=== PATIENT | female | born 1970 | race Caucasian/White ===

== ENCOUNTER 2017-03-19 18:45 | Inpatient (IN) ==
[2017-03-19] MEDS ORDERED: *HR* LORazepam 2 MG/ML VIAL IM PRN (19:53)
[2017-03-19] MEDS ORDERED: *HR* LORazepam 1 MG TABLET PO PRN (19:53)
[2017-03-19] MEDS ORDERED: Haloperidol Lactate 5 MG/ML VIAL IM PRN (19:53)
[2017-03-19] MEDS ORDERED: Mag Hydrox/Al Hydrox/Simeth 30 ML UDC PO PRN (19:53)
[2017-03-19] MEDS ORDERED: Gabapentin 400 MG CAPSULE PO SCH (21:00)
[2017-03-19] MEDS: traZODone 50 MG TABLET PO PRN (21:31)
[2017-03-19] MEDS: Divalproex (12 HR) 500 MG TABLET PO SCH (21:33)
[2017-03-20] MEDS: traZODone 50 MG TABLET PO PRN ×2 (00:39→20:19)
[2017-03-20] MEDS: Divalproex (12 HR) 500 MG TABLET PO SCH ×2 (08:17→20:19)
[2017-03-20] MEDS: Multivit/Ca/Min/Fe/FA 1 TAB TABLET PO SCH (08:17)
[2017-03-20] MEDS: Loratadine 10 MG TABLET PO SCH (08:17)
[2017-03-20] MEDS: Furosemide 20 MG TABLET PO SCH (08:18)
[2017-03-20] MEDS: *HR* Metformin 500 MG TABLET PO SCH ×2 (08:18→17:04)
[2017-03-20] MEDS: (Omega-3/Dha/Epa/Fish Oil [Fish Oil 1,000 Mg Softgel]) PO SCH (08:20)
--- NOTE | 2017-03-20 10:04 | Psychiatry History & Physical ---
Date of Encounter: 03/20/17 Time of Encounter: 09:30 History of Present Illness Patient Stated Chief Complaint: Suicidal Medicare Admission Attestation: For traditional Medicare patients the provided hospital inpatient services are reasonable and necessary and in the case of services not specified as inpatient -only under 42 CFR 419.22 (n), that they are appropriately provided as inpatient services in accordance 42 CFR 412.3. For Critical Access Hospital the patient may reasonably be expected to be discharged or transferred to a hospital within 96 hours after admission to the Critical Access Hospital. Admitted From: Hospital to Hospital Transfer ([facility]) History of Present Illness: Ms. Steel is a 46 year old female transferred from [facility] for evaluation and treatment of schizoaffective disorder bipolar type and suicidal ideation. Per records patient had an argument with her father and felt suicidal and depressed and was taken to [facility] ER for evaluation and transferred to [place]. Patient is well known to this unit and had multiple admissions in the past most recent was in 2008 and also had multiple suicide attempts. Patient stated that her family is quite controlling and made her come to the hospital, she believes that her medications are not helping and she wants to work after adjusting her medication and taking care of her mental health. She will complain of poor sleep and anxiety and suicidal thoughts. She reports hearing voices to hurt herself. Past Med Surg Social Fam HX - Past Medical History Medical history: diabetes, hyperlipidemia, hypertension - Past Psychiatric History Psychiatric history: Reports: bipolar, prior suicide attempt, previous psychiatric hospitalization Past psychiatric history details: Most recent hospitalization at [facility] in 2012. Schizoaffective disorder bipolar type - Past Surgical History Surgical History: cholecystectomy, hysterectomy, MAGALIE/BSO - Social History Smoking Status: Unknown if ever smoked Smokeless Tobacco Status: No Alcohol use: none Drug use: none Medications & Allergies Atorvastatin [Lipitor] 20 mg PO HS 03/19/17 [History] Bisacodyl [Dulcolax] 5 mg PO DAILY PRN 03/19/17 [History] Carvedilol [Coreg] 12.5 mg PO BIDWM 03/19/17 [History] Divalproex Sodium [Depakote] 500 mg PO BID 03/19/17 [History] Escitalopram [Lexapro] 20 mg PO QPM 03/19/17 [History] Ferrous Sulfate [Iron] 325 mg PO BID 03/19/17 [History] Fluticasone Propionate Nasal [Flonase] 2 spray NS QPM 03/19/17 [History] Furosemide [Lasix] 20 mg PO QAM 03/19/17 [History] Gabapentin [Neurontin] 400 mg PO HS 03/19/17 [History] Loratadine [Allergy Relief] 10 mg PO DAILY 03/19/17 [History] Metformin [Glucophage] 500 mg PO BIDWM 03/19/17 [History] Multivitamin [Multi-Day Vitamins] 1 tab PO DAILY 03/19/17 [History] [place]-3/Dha/Epa/Fish Oil [Fish Oil 1,000 mg Softgel] 1,000 mg PO DAILY 03/19/17 [History] Omeprazole [PriLOSEC] 20 mg PO BIDAC 03/19/17 [History] Paliperidone [Invega] 6 mg PO QAM 03/19/17 [History] Polyethylene Glycol 3350 [MiraLAX Powder Bulk 17.9 Oz] 17 gm PO DAILY 03/19/17 [ History] Rivaroxaban [Xarelto] 20 mg PO QAM 03/19/17 [History] TraZODone 50 mg PO HS 03/19/17 [History] Tramadol HCl [Ultram] 50 mg PO BID PRN 03/19/17 [History] Vitamin B Complex Vit C No.4 [Super B Complex] 1 tab PO DAILY 03/19/17 [History] Gabapentin [Neurontin] 100 mg PO QAM 03/20/17 [History] Allergies bupropion [From Wellbutrin] Allergy (Verified 03/19/17 19:51) See Comments Review of Systems Psychiatric: Reports: suicidal ideation, auditory hallucinations, mood swings Mental Status Exam Patient orientation: Yes Person, Yes Time, Yes Place Level of alertness: Alert Patient appearance: Appropriate, Well Groomed, Unkempt, Bizarre, Obese Additional observations: Ambulates with a walker Behavior: cooperative, nervous, anxious, distractible, talkative Psychomotor activity: Increased Eye contact: Fleeting Contact Mood description: Anxious, Labile, Irritable Affect description: congruent with mood, labile, constricted Speech pattern: Normal rate, Normal rhythm, Normal tone, Pressured Speech volume: Loud Thought process: Linear, Goal Oriented Thought content: Yes Suicidal ideation, No Homicidal ideation, No Overt delusions Perceptual disturbances: Yes Auditory hallucinations, No Visual hallucinations Attention span: Unable to Focus Memory description: Immediate Impaired, Remote Impaired Patient reliability: Not Reliable Historian Intelligence estimate: Average Judgment: Limited Insight: Partial Results - Vital Signs Vital signs: Temp Pulse Resp BP 98.3 F 80 18 139/88 03/20/17 09:00 03/20/17 09:00 03/20/17 09:00 03/20/17 09:00 - Labs Labs: Laboratory Last Values POC Glucose 88 (58-89) 03/20/17 06:43 Assessment and Plan (1) Schizoaffective disorder, bipolar type Current visit: Yes Status: Acute Plan: Admit inpatient for safety and stabilization, Close observation, Suicide Precautions per unit protocol, Encourage participation in unit milieu, Group Therapy, Monitor sleep, Monitor appetite Additional Plan: We will check Depakote level, we will increase gabapentin to 400 mg twice a day and we will continue to monitor. Risks, benefits, side effects, alternatives discussed w/pt: Yes Patient agreeable to treatment: Yes
[2017-03-20] MEDS: Fluticasone Propionate Nasal 50 MCG/SPRAY BOTTLE NS SCH (17:04)
[2017-03-20] MEDS: Gabapentin 400 MG CAPSULE PO SCH (20:19)
[2017-03-21] MEDS: traZODone 50 MG TABLET PO PRN ×3 (00:39→22:18)
[2017-03-21] MEDS: MOM Conc 10 ML UD.LIQ PO PRN (06:07)
[2017-03-21] MEDS: Ibuprofen 400 MG TABLET PO PRN (07:51)
[2017-03-21] MEDS: (Omega-3/Dha/Epa/Fish Oil [Fish Oil 1,000 Mg Softgel]) PO SCH (08:05)
[2017-03-21] MEDS: Loratadine 10 MG TABLET PO SCH (08:24)
[2017-03-21] MEDS: *HR* Metformin 500 MG TABLET PO SCH ×2 (08:24→17:59)
[2017-03-21] MEDS: Divalproex (12 HR) 500 MG TABLET PO SCH (08:24)
[2017-03-21] MEDS: Furosemide 20 MG TABLET PO SCH (08:25)
[2017-03-21] MEDS: Multivit/Ca/Min/Fe/FA 1 TAB TABLET PO SCH (08:25)
[2017-03-21] MEDS: Gabapentin 400 MG CAPSULE PO SCH ×2 (08:25→21:13)
[2017-03-21] MEDS: hydrOXYzine pamoate 25 MG CAPSULE PO PRN (10:37)
--- NOTE | 2017-03-21 14:44 | Psychiatry Progress Note ---
Date of Encounter: 03/21/17 Time of Encounter: 14:10 Subjective Interval history: Patient is seen for follow-up. Staff reports she is having mood swings and occasional agitation did not require medication, she she was delusional and paranoid token about ""Satan" tell her to kill herself. She needs constant supervision and assistance from the staff. Review of Systems Psychiatric: Reports: suicidal ideation, auditory hallucinations, mood swings Objective: Exam Patient orientation: Yes Person, Yes Time, Yes Place Level of alertness: Alert Patient appearance: Appropriate, Well Groomed, Obese Behavior: cooperative, anxious, suspicious Psychomotor activity: Slowed Eye contact: Minimal Contact Mood description: Anxious, Labile, Irritable Affect description: congruent with mood, labile, tearful Speech pattern: Normal rate, Normal rhythm, Normal tone, Disorganized Speech volume: Normal Thought process: Circumstantial, Loose Associations, Flight of Ideas, Disorganized Thought content: Yes Suicidal ideation, No Homicidal ideation, No Overt delusions, Yes Paranoid delusion Perceptual disturbances: Yes Auditory hallucinations, No Visual hallucinations Judgment: Fair Insight: Partial Results - Vital Signs Vital Signs: Temp Pulse Resp BP 97.2 F L 74 18 123/80 03/21/17 08:53 03/21/17 08:53 03/21/17 08:53 03/21/17 08:53 Assessment and Plan (1) Schizoaffective disorder, bipolar type Current visit: Yes Status: Acute Plan: Continue hospitalization, Close observation, Suicide Precautions per unit protocol, Encourage participation in unit milieu, Group Therapy, Monitor sleep, Monitor appetite Additional Plan: We will increase Depakote to 1500 mg at bedtime. Risks, benefits, side effects, alternatives discussed w/pt: Yes Patient agreeable to treatment: Yes Consult Discharge Plan - Plan Referrals: Lorna Camargo [employer] [facility] [employer] [Primary Care Provider] -
[2017-03-21] MEDS: Fluticasone Propionate Nasal 50 MCG/SPRAY BOTTLE NS SCH (18:06)
[2017-03-21] MEDS: Divalproex (24 HR) 500 MG TABLET PO SCH (21:13)
[2017-03-22] MEDS: Multivit/Ca/Min/Fe/FA 1 TAB TABLET PO SCH (08:19)
[2017-03-22] MEDS: Loratadine 10 MG TABLET PO SCH (08:19)
[2017-03-22] MEDS: Furosemide 20 MG TABLET PO SCH (08:19)
[2017-03-22] MEDS: Gabapentin 400 MG CAPSULE PO SCH ×2 (08:19→20:09)
[2017-03-22] MEDS: MOM Conc 10 ML UD.LIQ PO PRN (08:20)
[2017-03-22] MEDS: *HR* Metformin 500 MG TABLET PO SCH ×2 (08:20→17:07)
[2017-03-22] MEDS: (Omega-3/Dha/Epa/Fish Oil [Fish Oil 1,000 Mg Softgel]) PO SCH (08:22)
--- NOTE | 2017-03-22 14:43 | Psychiatry Progress Note ---
Date of Encounter: 03/22/17 Time of Encounter: 14:39 Subjective Interval history: Patient seen for follow-up with the nursing staff. Staff reports the patient is labile and easily agitated and continued to be delusional about getting and not sleeping well at night. Her speech is pressured with some ideas and delusional content. I am making adjustments to her medication starting was increasing Depakote and will continue to review and adjust her medication. Her 72 hours today and requests for probable cause hearing was submitted. Patient is currently unstable and cannot be discharged. Review of Systems Psychiatric: Reports: suicidal ideation, auditory hallucinations, mood swings Objective: Exam Patient orientation: Yes Person, Yes Time, Yes Place Level of alertness: Alert Patient appearance: Appropriate, Well Groomed, Obese Behavior: calm, cooperative, suspicious, distractible, impulsive, talkative Psychomotor activity: Increased Eye contact: Fleeting Contact Mood description: Anxious, Euphoric, Expansive, Labile Affect description: congruent with mood, labile, euphoric Speech pattern: Normal rate, Normal rhythm, Normal tone, Disorganized, Excessive , Pressured Speech volume: Normal, Loud Thought process: Linear, Goal Oriented Thought content: Yes Suicidal ideation, No Homicidal ideation, No Overt delusions Perceptual disturbances: No Auditory hallucinations, No Visual hallucinations Judgment: Fair Insight: Partial Results - Vital Signs Vital Signs: Temp Pulse Resp BP 96.9 F L 83 18 140/90 03/22/17 09:00 03/22/17 09:00 03/22/17 09:00 03/22/17 09:00 Assessment and Plan (1) Schizoaffective disorder, bipolar type Current visit: Yes Status: Acute Plan: Continue hospitalization, Close observation, Suicide Precautions per unit protocol, Encourage participation in unit milieu, Group Therapy, Monitor sleep, Monitor appetite Risks, benefits, side effects, alternatives discussed w/pt: Yes Patient agreeable to treatment: Yes Consult Discharge Plan - Plan [facility] [place]
[2017-03-22] MEDS: Fluticasone Propionate Nasal 50 MCG/SPRAY BOTTLE NS SCH (18:56)
[2017-03-22] MEDS: Divalproex (24 HR) 500 MG TABLET PO SCH (20:10)
[2017-03-23] MEDS: traZODone 50 MG TABLET PO PRN (00:42)
[2017-03-23] MEDS: *HR* Metformin 500 MG TABLET PO SCH ×2 (08:19→16:39)
[2017-03-23] MEDS: Furosemide 20 MG TABLET PO SCH (08:20)
[2017-03-23] MEDS: Multivit/Ca/Min/Fe/FA 1 TAB TABLET PO SCH (08:20)
[2017-03-23] MEDS: Loratadine 10 MG TABLET PO SCH (08:20)
[2017-03-23] MEDS: Gabapentin 400 MG CAPSULE PO SCH ×2 (08:21→21:38)
[2017-03-23] MEDS: (Omega-3/Dha/Epa/Fish Oil [Fish Oil 1,000 Mg Softgel]) PO SCH (08:21)
[2017-03-23 11:08] LABS: Basophils % 0.6 %; Eosinophils # 0.2 K/mcL (0.0-0.6); Eosinophils % 2.6 %; Hemoglobin 14.6 g/dL (11.5-15.4); Immature Granulocytes % 0.7 % (0-4); Lymphocytes # 2.1 K/mcL (0.6-4.6); Lymphocytes % 30.2 %; Mean Corpuscular HGB Conc 33.2 g/dL (31.6-35.5); Mean Corpuscular Hemoglobin 32.4 pg (28.0-33.3); Mean Corpuscular Volume 97.6 fL (83.0-100.0); Mean Platelet Volume 11.3 fL (9.4-12.4); Monocytes # 0.6 K/mcL (0.0-1.3); Monocytes % 8.1 %; Nucleated Red Blood Cells 0.3 /100 WBC (0); Platelet Count 171 K/mcL (140-400); Red Blood Count 4.51 M/mcL (3.82-4.97); Red Cell Distribution Width 15.6 % (11.5-14.5); Segmented Neutrophils % 57.8 %
[2017-03-23 11:39] LABS: Platelet Estimate Normal (Normal)
--- NOTE | 2017-03-23 14:24 | Psychiatry Progress Note ---
Date of Encounter: 03/23/17 Time of Encounter: 14:00 Subjective Interval history: Patient is seen for follow-up with the nursing staff. She reports feeling better, not anxious and not depressed. Staff reports she is less labile and more active and participating in groups. I received information from the home care agency showing that patient was taken Clozaril and had a history of NMS. Lab work and EKG were ordered and patient was started on Clozaril 100 mg twice a day and Depakote level improved from 42- 65 in the therapeutic range. Patient is not impulsive and able to participate in conversation and answer questions appropriately. Review of Systems Psychiatric: Reports: suicidal ideation, auditory hallucinations, mood swings Objective: Exam Patient orientation: Yes Person, Yes Time, Yes Place Level of alertness: Alert Patient appearance: Appropriate, Well Groomed, Obese Behavior: calm, cooperative Psychomotor activity: Normal Eye contact: Maintains Eye Contact Mood description: Euthymic/stable Affect description: congruent with mood, full range Speech pattern: Normal rate, Normal rhythm, Normal tone, Appropriate Speech volume: Normal Thought process: Linear, Goal Oriented Thought content: No Suicidal ideation, No Homicidal ideation, No Overt delusions , No Ideas of reference, No Paranoid delusion Perceptual disturbances: No Auditory hallucinations, No Visual hallucinations Judgment: Fair Insight: Partial Results - Vital Signs Vital Signs: Temp Pulse Resp BP 97.4 F L 83 18 150/90 03/23/17 08:20 03/23/17 08:20 03/23/17 08:20 03/23/17 08:20 - Labs Labs: Laboratory Results - last 24 hr 03/22/17 03/23/17 03/23/17 16:51 07:14 10:39 WBC 6.9 RBC 4.51 Hgb 14.6 Hct 44.0 MCV 97.6 MCH 32.4 MCHC 33.2 RDW 15.6 H Plt Count 171 MPV 11.3 Immature Gran % 0.7 Seg Neutrophils % 57.8 Lymphocytes % 30.2 Monocytes % 8.1 Eosinophils % 2.6 Basophils % 0.6 Neutrophils # 4.0 Lymphocytes # 2.1 Monocytes # 0.6 Eosinophils # 0.2 Basophils # 0.0 Nucleated RBCs/100 WBC 0.3 H Platelet Estimate Normal POC Glucose 88 83 Valproic Acid 03/23/17 10:39 WBC RBC Hgb Hct MCV MCH MCHC RDW Plt Count MPV Immature Gran % Seg Neutrophils % Lymphocytes % Monocytes % Eosinophils % Basophils % Neutrophils # Lymphocytes # Monocytes # Eosinophils # Basophils # Nucleated RBCs/100 WBC Platelet Estimate POC Glucose Valproic Acid 65.70 Assessment and Plan (1) Schizoaffective disorder, bipolar type Current visit: Yes Status: Acute Additional Plan: Start the patient on Clozaril 100 mg twice daily. Order CBC and EKG and Depakote level Risks, benefits, side effects, alternatives discussed w/pt: Yes Patient agreeable to treatment: Yes Consult Discharge Plan - Plan [facility] [place] [place]
[2017-03-23] MEDS: Fluticasone Propionate Nasal 50 MCG/SPRAY BOTTLE NS SCH (18:01)
[2017-03-23] MEDS: cloZAPine 100 MG TABLET PO SCH (21:37)
[2017-03-23] MEDS: Divalproex (24 HR) 500 MG TABLET PO SCH (21:37)
[2017-03-24] MEDS: *HR* Metformin 500 MG TABLET PO SCH ×3 (07:16→17:44)
[2017-03-24] MEDS: Loratadine 10 MG TABLET PO SCH (08:13)
[2017-03-24] MEDS: Furosemide 20 MG TABLET PO SCH (08:13)
[2017-03-24] MEDS: Multivit/Ca/Min/Fe/FA 1 TAB TABLET PO SCH (08:13)
[2017-03-24] MEDS: cloZAPine 100 MG TABLET PO SCH ×2 (08:13→19:59)
[2017-03-24] MEDS: Gabapentin 400 MG CAPSULE PO SCH ×2 (08:14→19:59)
[2017-03-24] MEDS: (Omega-3/Dha/Epa/Fish Oil [Fish Oil 1,000 Mg Softgel]) PO SCH (08:57)
--- NOTE | 2017-03-24 14:45 | Psychiatry Progress Note ---
Date of Encounter: 03/24/17 Time of Encounter: 14:40 Subjective Interval history: Patient seen for follow-up. She is deeply sleeping and could not be waken up. Staff reports she is not agitated, less anxious and not irritable. So far her response to medication changes is positive. I discussed with treatment team that treatment goal is stabilization on medication and to have adequate time for observation and monitoring. Also medical issues will need to be addressed to her PCP if not acute. Review of Systems Psychiatric: Reports: suicidal ideation, auditory hallucinations, mood swings Objective: Exam Additional observations: Patient is deeply asleep could not be awakened for the interview. Results - Vital Signs Vital Signs: Temp Pulse Resp BP 97.4 F L 99 18 146/101 03/24/17 08:11 03/24/17 08:11 03/24/17 08:11 03/24/17 08:11 - Labs Labs: Laboratory Results - last 24 hr 03/23/17 03/24/17 16:33 07:22 POC Glucose 111 H 97 H Assessment and Plan (1) Schizoaffective disorder, bipolar type Current visit: Yes Status: Acute Plan: Continue hospitalization, Close observation, Suicide Precautions per unit protocol, Encourage participation in unit milieu, Group Therapy, Monitor sleep, Monitor appetite Risks, benefits, side effects, alternatives discussed w/pt: Yes Patient agreeable to treatment: Yes Consult Discharge Plan - Plan [facility] [place] (You will see Yanelis Montague psychiatric prescriber, on 05/08/2017 at 8:30am. Appointment with Mounika will be scheduled once discharge date is known.)
[2017-03-24] MEDS: Fluticasone Propionate Nasal 50 MCG/SPRAY BOTTLE NS SCH (17:41)
--- NOTE | 2017-03-24 17:42 | Electrocardiograph Report ---
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
[2017-03-24] MEDS: Divalproex (24 HR) 500 MG TABLET PO SCH (19:58)
[2017-03-24] MEDS: traZODone 50 MG TABLET PO PRN (21:53)
[2017-03-25] MEDS: cloZAPine 100 MG TABLET PO SCH ×2 (08:23→21:51)
[2017-03-25] MEDS: Multivit/Ca/Min/Fe/FA 1 TAB TABLET PO SCH (08:23)
[2017-03-25] MEDS: Furosemide 20 MG TABLET PO SCH (08:24)
[2017-03-25] MEDS: Gabapentin 400 MG CAPSULE PO SCH ×2 (08:24→21:50)
[2017-03-25] MEDS: *HR* Metformin 500 MG TABLET PO SCH ×2 (08:24→17:00)
[2017-03-25] MEDS: Loratadine 10 MG TABLET PO SCH (08:25)
[2017-03-25] MEDS: (Omega-3/Dha/Epa/Fish Oil [Fish Oil 1,000 Mg Softgel]) PO SCH (08:25)
[2017-03-25] MEDS: Ibuprofen 400 MG TABLET PO PRN (13:03)
--- NOTE | 2017-03-25 13:24 | Psychiatry Progress Note ---
Date of Encounter: 03/25/17 Time of Encounter: 01:00 Subjective Interval history: The patient seen and interviewed. History and physical examination reviewed. According to the staff patient has been demonstrating controlled and compliant behavior however during the interview patient did appear scattered and pressured with racing thoughts. She is denying suicidal ideation and reporting of noticing improvement in her mood. Patient does not feel she is ready to go and requesting a couple of more days to feel more stable and safe leaving the hospital. Pt was encouraged to attend groups and participate in activities which she is planning on doing. Patient is also encouraged to work on a safety plan. Patient has been tolerating medications fairly well and did not report any side effects. Her sleep and appetite improved. She still needing redirection for her ADLs. Review of Systems Psychiatric: Reports: depression, difficulty concentrating, mood swings Objective: Exam Patient orientation: Yes Person, Yes Time, Yes Place Level of alertness: Alert Patient appearance: Unkempt, Disheveled Behavior: anxious, impulsive, talkative Psychomotor activity: Normal Eye contact: Maintains Eye Contact Mood description: Depressed Affect description: labile Speech pattern: Excessive, Pressured Speech volume: Soft/Quiet Thought process: Loose Associations, Tangential, Racing Thought content: Yes Grandiose delusion Perceptual disturbances: No Auditory hallucinations, No Visual hallucinations Judgment: Limited Insight: Minimal Results - Vital Signs Vital Signs: Temp Pulse Resp BP 98 F 94 16 142/96 03/25/17 09:00 03/25/17 09:00 03/25/17 09:00 03/25/17 09:00 - Labs Labs: Laboratory Results - last 24 hr 03/24/17 03/25/17 17:00 06:49 POC Glucose 88 110 H Assessment and Plan (1) Schizoaffective disorder, bipolar type Current visit: Yes Status: Acute Plan: Continue hospitalization, Close observation, Suicide Precautions per unit protocol, Encourage participation in unit milieu, Group Therapy, Monitor sleep, Monitor appetite, Family/Supportive other meeting Additional Plan: Continue with current regimen of medications. Risks, benefits, side effects, alternatives discussed w/pt: Yes Patient agreeable to treatment: Yes Consult Discharge Plan - Plan Referrals: [facility] [Outside] (You will see Yanelis Montague psychiatric prescriber, on 05/08/2017 at 8:30am. Appointment with Mounika will be scheduled once discharge date is known.)
[2017-03-25] MEDS: hydrOXYzine pamoate 25 MG CAPSULE PO PRN ×2 (16:16→21:50)
[2017-03-25] MEDS: Fluticasone Propionate Nasal 50 MCG/SPRAY BOTTLE NS SCH (17:00)
[2017-03-25] MEDS: traZODone 50 MG TABLET PO PRN (21:51)
[2017-03-25] MEDS: Divalproex (24 HR) 500 MG TABLET PO SCH (21:51)
[2017-03-26] MEDS: *HR* Metformin 500 MG TABLET PO SCH ×2 (08:37→17:16)
[2017-03-26] MEDS: cloZAPine 100 MG TABLET PO SCH ×2 (08:38→21:22)
[2017-03-26] MEDS: Furosemide 20 MG TABLET PO SCH (08:38)
[2017-03-26] MEDS: Gabapentin 400 MG CAPSULE PO SCH ×2 (08:38→21:21)
[2017-03-26] MEDS: Multivit/Ca/Min/Fe/FA 1 TAB TABLET PO SCH (08:38)
[2017-03-26] MEDS: Loratadine 10 MG TABLET PO SCH (08:39)
[2017-03-26] MEDS: (Omega-3/Dha/Epa/Fish Oil [Fish Oil 1,000 Mg Softgel]) PO SCH (08:43)
--- NOTE | 2017-03-26 12:46 | Psychiatry Progress Note ---
Date of Encounter: 03/26/17 Time of Encounter: 11:45 Subjective Interval history: Patient seen and interviewed. Continue to make progress. Still endorsing some hyperactivity and restlessness. More coherent logical and linear. Denies any suicidal or homicidal ideations. ADLs have been improving. More engaged and able to have a conversation without getting distracted. Tolerating medications fairly well. Overall improving Review of Systems Psychiatric: Reports: depression, difficulty concentrating, mood swings Objective: Exam Patient orientation: Yes Person, Yes Time, Yes Place Level of alertness: Alert Patient appearance: Unkempt, Disheveled, Obese Behavior: calm, cooperative Psychomotor activity: Normal Eye contact: Maintains Eye Contact Mood description: Depressed Affect description: congruent with mood Speech pattern: Excessive, Pressured Speech volume: Normal Thought process: Linear, Goal Oriented Thought content: No Suicidal ideation, No Homicidal ideation, Yes Grandiose delusion Perceptual disturbances: No Auditory hallucinations, No Visual hallucinations Judgment: Fair Insight: Partial Results - Vital Signs Vital Signs: Temp Pulse Resp BP 98 F 94 18 155/99 03/26/17 09:00 03/26/17 09:00 03/26/17 09:00 03/26/17 09:00 - Labs Labs: Laboratory Results - last 24 hr 03/25/17 03/26/17 16:34 07:01 POC Glucose 90 H 94 H Assessment and Plan (1) Schizoaffective disorder, bipolar type Current visit: Yes Status: Acute Plan: Continue hospitalization, Close observation, Suicide Precautions per unit protocol, Encourage participation in unit milieu, Group Therapy, Monitor sleep, Monitor appetite Additional Plan: Continue with current regimen of medications. Possible discharge tomorrow Risks, benefits, side effects, alternatives discussed w/pt: Yes Patient agreeable to treatment: Yes Consult Discharge Plan - Plan Referrals: [facility] [Outside] (You will see Yanelis Montague, psychiatric prescriber, on 05/08/2017 at 8:30am. Appointment with Mounika will be scheduled once discharge date is known.)
[2017-03-26] MEDS: Ibuprofen 400 MG TABLET PO PRN (15:57)
[2017-03-26] MEDS: Fluticasone Propionate Nasal 50 MCG/SPRAY BOTTLE NS SCH (17:17)
[2017-03-26] MEDS: Divalproex (24 HR) 500 MG TABLET PO SCH (21:21)
[2017-03-26] MEDS: traZODone 50 MG TABLET PO PRN (23:13)
[2017-03-27] MEDS: Ibuprofen 400 MG TABLET PO PRN (06:30)
[2017-03-27] MEDS: *HR* Metformin 500 MG TABLET PO SCH (08:53)
[2017-03-27] MEDS: cloZAPine 100 MG TABLET PO SCH (08:53)
[2017-03-27] MEDS: Multivit/Ca/Min/Fe/FA 1 TAB TABLET PO SCH (08:53)
[2017-03-27] MEDS: Loratadine 10 MG TABLET PO SCH (08:54)
[2017-03-27] MEDS: Furosemide 20 MG TABLET PO SCH (08:54)
[2017-03-27] MEDS: Gabapentin 400 MG CAPSULE PO SCH (08:54)
[2017-03-27] MEDS: (Omega-3/Dha/Epa/Fish Oil [Fish Oil 1,000 Mg Softgel]) PO SCH (08:55)
[2017-03-27 09:19] VITALS: BP 142/107
--- NOTE | 2017-03-27 12:06 | Discharge Summary ---
Date of Encounter: 03/27/17 Time of Encounter: 12:05 Diagnosis - Discharge Diagnosis (1) Schizoaffective disorder, bipolar type Status: Acute Medications - Discharge Medications Prescriptions: CloZAPine [Clozaril] 100 mg PO BID #14 tablet Divalproex (24 HR) [Depakote ER (24 HR)] 1,500 mg PO HS #30 tab.er.24h Gabapentin [Neurontin] 400 mg PO BID #60 capsule Atorvastatin [Lipitor] 20 mg PO HS 03/19/17 [History] Bisacodyl [Dulcolax] 5 mg PO DAILY PRN 03/19/17 [History] Carvedilol [Coreg] 12.5 mg PO BIDWM 03/19/17 [History] Escitalopram [Lexapro] 20 mg PO QPM 03/19/17 [History] Ferrous Sulfate [Iron] 325 mg PO BID 03/19/17 [History] Fluticasone Propionate Nasal [Flonase] 2 spray NS QPM 03/19/17 [History] Furosemide [Lasix] 20 mg PO QAM 03/19/17 [History] Loratadine [Allergy Relief] 10 mg PO DAILY 03/19/17 [History] Metformin [Glucophage] 500 mg PO BIDWM 03/19/17 [History] Multivitamin [Multi-Day Vitamins] 1 tab PO DAILY 03/19/17 [History] [place]-3/Dha/Epa/Fish Oil [Fish Oil 1,000 mg Softgel] 1,000 mg PO DAILY 03/19/17 [History] Omeprazole [PriLOSEC] 20 mg PO BIDAC 03/19/17 [History] Paliperidone [Invega] 6 mg PO QAM 03/19/17 [History] Polyethylene Glycol 3350 [MiraLAX Powder Bulk 17.9 Oz] 17 gm PO DAILY 03/19/17 [ History] Rivaroxaban [Xarelto] 20 mg PO QAM 03/19/17 [History] TraZODone 50 mg PO HS 03/19/17 [History] Tramadol HCl [Ultram] 50 mg PO BID PRN 03/19/17 [History] Vitamin B Complex Vit C No.4 [Super B Complex] 1 tab PO DAILY 03/19/17 [History] CloZAPine [Clozaril] 100 mg PO BID #14 tablet 03/27/17 [Rx] Divalproex (24 HR) [Depakote ER (24 HR)] 1,500 mg PO HS #30 tab.er.24h 03/27/17 [Rx] Gabapentin [Neurontin] 400 mg PO BID #60 capsule 03/27/17 [Rx] Patient Taking Own Medication 0 each PO DAILY each 03/27/17 [Rx] Allergies bupropion [From Wellbutrin] Allergy (Verified 08/22/16 18:54) Seizure Results Procedures and tests throughout hospitalization: Completed Lab Orders Category Date Time Status CBC [Complete Blood Count] [HEME] Routine Lab 03/23/17 10:39 Completed Valproate Routine Lab 03/20/17 10:15 Completed Valproate Routine Lab 03/23/17 10:39 Completed Provider Date of admission: 03/19/17 18:45 Primary care physician: ABHINAV Snowden Discharging clinician: Flynn Post Assessment and Plan - Patient/Caregiver Discharge Instructions Activity: resume usual activities as tolerated Diet: regular diet - Follow up Plan [facility] [place] [place] (You will see Yanelis Montague psychiatric prescriber, on 05/08/2017 at 8:30am. Appointment with Mounika will be scheduled once discharge date is known.) Functional capacity at discharge: independent ambulation Overall status at discharge: Stable Disposition: Home, Self-Care Hospital Course Hospital course: Ms. Steel is a 46 year old female admitted bipolar or his suicidal ideation and auditory hallucination. For details of admission please see H&P On the units patient was delusional, paranoid, sexually preoccupied and hear voices and expressing suicidal ideation. She was easily agitated and labile. Her medication was reviewed Depakote was increased to 1500 mg daily, gabapentin was increased to 400 mg twice a day, Prilosec was added also to Clozaril was added 100 mg twice daily. Patient responded well to medication changes, she was cooperative and pleasant, not labile, not agitated her sleep and appetite improved she did not display paranoid delusions or suicidal ideation. Her Depakote level was therapeutic and her blood count and EKG were also normal limits. Prior to discharge patient was medically stable and future oriented and her discharge plans were completed by the staff. - Time Spent with Patient Total time spent providing and/or coordinating discharge services: Greater than 30 minutes Quality - Multiple Antipsychotics Patient discharged on 2 or more antipsychotic medications: Yes - Justification Documentation of: Recommended plan to taper to monotherapy (Patient started on Clozaril and will be tapered off gradually from invaga) Procedures - Procedures Procedures: Medication Management, Crisis Stabilization, Supportive Therapy, Group Therapy, Psychoeducational Therapy Mental Status Exam - Mental Status Exam Patient orientation: Yes Person, Yes Time, Yes Place Level of alertness: Alert Patient appearance: Appropriate, Well Groomed, Obese Behavior: calm, cooperative Psychomotor activity: Normal Eye contact: Maintains Eye Contact Mood description: Euthymic/stable Affect description: congruent with mood, full range Speech pattern: Normal rate, Normal rhythm, Normal tone Speech Volume: Normal Thought process: Linear, Goal Oriented Thought Content: No Suicidal ideation, No Homicidal ideation, No Overt delusions Perceptual Disturbances: No Auditory hallucinations, No Visual hallucinations Judgment: Limited Insight: Partial
--- NOTE | 2017-03-27 12:09 | Physician Discharge Referral ---
Home Health/Hosp Referral Info Attending Provider: deena - Diagnosis (1) Schizoaffective disorder, bipolar type Status: Acute - Respiratory Orders Smoking Cessation: Smoking cessation has been advised. For more information, call the [place] Tobacco Quit Line at 2-459-CWVK-NOW. - Diet/Nutrition Diet/Nutrition Orders: Regular, No Concentrated Sweets - Activity Activity Orders: Walker - Services Needed Following services are medically necessary services: Nursing, Home Health Aide ( Continue therapy) Other Treatments: Patient will continue on Clozaril 100 mg twice a twice a day she will need a CBC and differential every week and her medication will be dispensed weekly. - Transfer Medications Prescriptions: CloZAPine [Clozaril] 100 mg PO BID #14 tablet Divalproex (24 HR) [Depakote ER (24 HR)] 1,500 mg PO HS #30 tab.er.24h Gabapentin [Neurontin] 400 mg PO BID #60 capsule Home Medications: Atorvastatin [Lipitor] 20 mg PO HS 03/19/17 [History] Bisacodyl [Dulcolax] 5 mg PO DAILY PRN 03/19/17 [History] Carvedilol [Coreg] 12.5 mg PO BIDWM 03/19/17 [History] Escitalopram [Lexapro] 20 mg PO QPM 03/19/17 [History] Ferrous Sulfate [Iron] 325 mg PO BID 03/19/17 [History] Fluticasone Propionate Nasal [Flonase] 2 spray NS QPM 03/19/17 [History] Furosemide [Lasix] 20 mg PO QAM 03/19/17 [History] Loratadine [Allergy Relief] 10 mg PO DAILY 03/19/17 [History] Metformin [Glucophage] 500 mg PO BIDWM 03/19/17 [History] Multivitamin [Multi-Day Vitamins] 1 tab PO DAILY 03/19/17 [History] Ol[place]a-3/Dha/Epa/Fish Oil [Fish Oil 1,000 mg Softgel] 1,000 mg PO DAILY 03/19/17 [History] Omeprazole [PriLOSEC] 20 mg PO BIDAC 03/19/17 [History] Paliperidone [Invega] 6 mg PO QAM 03/19/17 [History] Polyethylene Glycol 3350 [MiraLAX Powder Bulk 17.9 Oz] 17 gm PO DAILY 03/19/17 [ History] Rivaroxaban [Xarelto] 20 mg PO QAM 03/19/17 [History] TraZODone 50 mg PO HS 03/19/17 [History] Tramadol HCl [Ultram] 50 mg PO BID PRN 03/19/17 [History] Vitamin B Complex Vit C No.4 [Super B Complex] 1 tab PO DAILY 03/19/17 [History] CloZAPine [Clozaril] 100 mg PO BID #14 tablet 03/27/17 [Rx] Divalproex (24 HR) [Depakote ER (24 HR)] 1,500 mg PO HS #30 tab.er.24h 03/27/17 [Rx] Gabapentin [Neurontin] 400 mg PO BID #60 capsule 03/27/17 [Rx] Patient Taking Own Medication 0 each PO DAILY each 03/27/17 [Rx] Allergies/Adverse Reactions: Allergies bupropion [From Wellbutrin] Allergy (Verified 08/22/16 18:54) Seizure Certification: Further, I certify that my clinical findings support that this patient is homebound (i.e. absences from home require considerable and taxing effort and are for medical reasons or jewish services or infrequently or short duration when for other reasons) because: Homebound Reason: Altered mental status requiring supervision when leaving home Attestation: My signature below is to certify that this patient is under my care and that I, or nurse practitioner, or a physician's workers compensation claims assistant working with me, has a face-to -face encounter with this patient.
== END 2017-03-27 14:27 | disposition home or self-care (01) | DRG 885 ==
LOC: 1ANU 18:45 → MERGE 18:45 → SUATTDRO 18:45 → 1ANU 21:06
PROVIDERS: ADMIT Psychiatry & Neurology Psychiatry; ATTEND Psychiatry & Neurology Psychiatry